=== PATIENT | female | born 1995 | race Caucasian/White ===

== ENCOUNTER 2017-11-02 14:56 | Observation (INO) | payer MEDICAID ==
[2017-11-02 15:54] VITALS: BP 122/74; PULSE 93
== END 2017-11-02 16:57 | disposition home or self-care (01) ==
LOC: UNDOADMOB 15:32 → OB 15:32 → UNDODISOB 16:57
PROVIDERS: ADMIT Family Medicine; ATTEND Family Medicine
DX: Z34.83 Encounter for supervision of other normal pregnancy, third trimester (principal)
CPT/HCPCS: 59025; G0378

== ENCOUNTER 2017-11-27 12:04 | Observation (INO) | payer MEDICAID ==
[2017-11-27 13:14] VITALS: O2SAT 98
[2017-11-27] MEDS ORDERED: Sodium Chloride 0.9% 1000 ML 1,000 ML IV STA (13:55)
[2017-11-27] MEDS ORDERED: Lactated Ringers 1,000 ML IV SCH (14:00)
--- NOTE | 2017-11-27 14:50 | XRAY ---
Indication: well-being. Ultrasound biophysical profile study was performed. Comparison: November 04, 2017. Again there is a single viable intrauterine with heart rate 139 BPM. Four-quadrant DAYNA is 16.7 cm, previously 15.8 cm. Largest amniotic pocket 5 cm. 2 points given for breathing, movements, tone, and qualitative amniotic fluid volume. Impression: Total biophysical profile score remains 8 out of 8.
[2017-11-27 15:29] LABS: Appearance HAZY (CLEAR); Bilirubin NEGATIVE (NEGATIVE); Blood NEGATIVE Ery/ul (0-5); Glucose 250 mg/dL (NEGATIVE); Ketones NEGATIVE (NEGATIVE); Leukocyte Esterase NEGATIVE (NEGATIVE); Nitrite NEGATIVE (NEGATIVE); Protein,Urine Dip NEGATIVE (Negative); Specific Gravity 1.025 (1.005-1.025); Urobilinogen NORMAL mg/dL (0-1)
[2017-11-27 15:43] LABS: BASOPHIL % 0.5 % (0.0-0.4); Basophil (Absolute #) 0.04 (0-0.4); Eosinophil % 3.1 % (0.00-5.0); Eosinophil (Absolute #) 0.26 (0-0.5); Granulocyte Absolute (ANC) 4.99 (1.4-6.9); Granulocytes % 59.6 % (36.0-66.0); Hematocrit 37.2 % (35-47); Hemoglobin 11.9 gm/dl (12.0-16.0); Lymphocyte (Absolute #) 2.25 (1.0-4.6); Lymphocytes % 26.9 % (24.0-44.0); Mean Cell Volume 85.9 fl (78-100); Mean Platelet Volume 12.7 fl (6-9.5); Monocyte (Absolute #) 0.83 (0.0-1.3); Monocytes % 9.9 % (0.0-12.0); Platelet Count 281 K/mm3 (150-450); Red Blood Count 4.33 M/mm3 (4.1-5.4); Red Cell Distribution Width 13.1 % (11.5-14.0); White Blood Count 8.4 K/mm3 (4.0-10.5)
[2017-11-27 15:53] LABS: ALBUMIN 3.7 g/dl (3.5-5.0); ALKALINE PHOSPHATASE 162 U/L (38-126); ANION GAP 15.1 MEQ/L (5-15); BLOOD UREA NITROGEN 9 mg/dl (7-17); CHLORIDE 106 mEq/L (98-107); Calcium 9.5 mg/dL (8.4-10.2); Carbon Dioxide 21 mmol/L (22-30); Creatinine 1 0.45 mg/dl (0.52-1.04); Glucose 79 mg/dL (74-106); Potassium 3.9 mmol/L (3.5-5.1); SGOT/AST 16 U/L (14-36); SGPT/ALT 13 U/L (0-35); SODIUM 138 mmol/L (137-145); Total Protein 7.3 mg/dl (6.3-8.2)
[2017-11-27] MEDS ORDERED: BRETHINE 1 MG/ML SQ ONE (16:07)
[2017-11-27 16:31] LABS: Mean Corpuscular Hemoglobin 27.4 pg (26-32)
[2017-11-27 16:34] LABS: Slide Review 1 YES
[2017-11-27 19:29] VITALS: BP 136/89; PULSE 92
== END 2017-11-27 18:55 | disposition home or self-care (01) ==
LOC: OB 12:07
PROVIDERS: ADMIT Family Medicine; ATTEND Family Medicine
DX: Z34.83 Encounter for supervision of other normal pregnancy, third trimester (principal)
CPT/HCPCS: 36415; 76819; 80053; 81002; 84550; 85025; 96372; G0378

== ENCOUNTER 2017-12-02 08:53 | Observation (INO) | payer OTHER ==
--- NOTE | 2017-12-02 10:51 | XRAY ---
Indication: well-being. Ultrasound biophysical profile study was performed. Comparison: November 27, 2017. Again there is a single viable intrauterine with heart rate 126 BPM. Four-quadrant DAYNA is 15.9 cm. Largest amniotic pocket 5.2 cm. 2 points given for breathing, movements, tone, and qualitative amniotic fluid volume. Impression: Total biophysical profile score remains 8 out of 8.
[2017-12-02 11:41] VITALS: BP 130/70; PULSE 70
== END 2017-12-02 11:20 | disposition home or self-care (01) ==
LOC: MED SURG 08:53
PROVIDERS: ADMIT Family Medicine; ATTEND Family Medicine
DX: Z34.83 Encounter for supervision of other normal pregnancy, third trimester (principal)
CPT/HCPCS: 59025; 76819; G0378

== ENCOUNTER 2017-12-05 08:28 | Observation (INO) | payer OTHER ==
[2017-12-06 17:14] VITALS: PULSE 65
[2017-12-06 17:24] LABS: 24 HR TOT. PROTEIN CALCULATION 0.06 GM/DAY (0.04-0.15)
[2017-12-06 18:56] VITALS: BP 140/84
--- NOTE | 2017-12-06 22:27 | XRAY ---
Indication: High risk . growth. Two-vessel cord. Two-dimensional OB ultrasound performed. Comparison: November 20, 2017. There is a single viable intrauterine again in cephalic presentation. Normal four-chamber heart with heart rate 117 bpm. Again there is again a 2 vessel umbilical cord. Remaining visualized stomach and bladder appear unremarkable. Placenta is again posterior without abruption/previa. BPD measures 9.00 cm corresponding to 36 weeks 3 day. HC measures 32.42 cm corresponding to 36 weeks 5 days. AC measures 32.37 cm corresponding to 36 weeks 2 days. FL measures 7.20 cm corresponding to 36 weeks 6 days. Estimated weight 6 lbs. 8 oz., +/-1 lb. 0 oz. Approximately 52 percentile. DAYNA is 10.1 cm. Impression: 1. Again single viable intrauterine with mean gestational age 36 weeks 4 days. Normal progression of . 2. Again incidental 2 vessel umbilical cord.
== END 2017-12-06 19:45 | disposition home or self-care (01) ==
LOC: EDSTATUS 12-06 15:24 → OB 12-06 15:25
PROVIDERS: ADMIT Family Medicine; ATTEND Family Medicine
DX: Z34.81 Encounter for supervision of other normal pregnancy, first trimester (principal)
CPT/HCPCS: 59025; 76805; 84156; G0378

== ENCOUNTER 2017-12-10 11:08 | Observation (INO) | payer OTHER ==
--- NOTE | 2017-12-10 12:08 | XRAY ---
Indication: Two-vessel cord. well being. Ultrasound biophysical profile study was performed. Comparison: December 02. Again there is a single viable intrauterine with heart rate documented. Four-quadrant DAYNA is 17.1 cm, previously 15.9 cm. Largest amniotic pocket is 4.7 cm. 2 points given for breathing, movements, tone, and qualitative amniotic fluid volume. Impression: Again total biophysical profile score is 8 out of 8.
[2017-12-10 12:22] VITALS: BP 129/72; PULSE 78
== END 2017-12-10 12:45 | disposition home or self-care (01) ==
LOC: OB 11:08
PROVIDERS: ADMIT Family Medicine; ATTEND Family Medicine
DX: Z34.83 Encounter for supervision of other normal pregnancy, third trimester (principal)
CPT/HCPCS: 59025; 76818; G0378

== ENCOUNTER 2017-12-13 09:35 | Observation (INO) | payer OTHER ==
[2017-12-13 10:01] VITALS: O2SAT 99
[2017-12-13] MEDS ORDERED: Celestone Soluspan 6MG/ML IM ONE (10:13)
[2017-12-13 12:34] VITALS: BP 139/86; PULSE 85
== END 2017-12-13 12:00 | disposition home or self-care (01) ==
LOC: OB 09:35
PROVIDERS: ADMIT Family Medicine; ATTEND Family Medicine
DX: Z34.83 Encounter for supervision of other normal pregnancy, third trimester (principal)
CPT/HCPCS: 59025; 96372; G0378; J0702

== ENCOUNTER 2017-12-16 00:10 | Inpatient (IN) | payer OTHER ==
[2017-12-16] MEDS ORDERED: Pepcid 20 MG VIAL IV SCH (00:15)
[2017-12-16] MEDS ORDERED: BICITRA 30 ML CUP PO SCH (00:15)
[2017-12-16] MEDS ORDERED: Reglan 10 MG/2 ML IV SCH (00:15)
[2017-12-16] MEDS ORDERED: CEFAZOLIN 2 GM-D5W BAG** 2 GM/50 ML ML IV SCH (00:30)
[2017-12-16 01:39] LABS: Amphetamine,Urine NEGATIVE (NEGATIVE); Barbiturate,Urine NEGATIVE (NEGATIVE); Benzodiazepine,Urine NEGATIVE (NEGATIVE); Cocaine,Urine NEGATIVE (NEGATIVE); Methadone,Urine NEGATIVE (NEGATIVE); Opiate,Urine NEGATIVE (NEGATIVE); PCP,Urine NEGATIVE (NEGATIVE); THC,Urine NEGATIVE (NEGATIVE)
[2017-12-16 02:49] LABS: Hemoglobin 10.7 gm/dl (12.0-16.0); Mean Cell Volume 85.4 fl (78-100); Mean Corpuscular Hgb Concent. 31.5 g/dl (32-36); Mean Platelet Volume 11.1 fl (6-9.5); Platelet Count 379 K/mm3 (150-450); Red Blood Count 3.98 M/mm3 (4.1-5.4); Red Cell Distribution Width 13.7 % (11.5-14.0); White Blood Count 6.4 K/mm3 (4.0-10.5)
[2017-12-16 02:50] LABS: Mean Corpuscular Hemoglobin 26.8 pg (26-32)
[2017-12-16 03:09] LABS: PTT 24.6 SECONDS (25.3-37.0)
[2017-12-16 03:29] LABS: ABO TYPING A; Antibody Screen NEGATIVE (NEGATIVE); RH TYPING POSITIVE
[2017-12-16 04:38] LABS: Appearance SLIGHTLY CLOUDY (CLEAR); Bacteria MODERATE /HPF (NEGATIVE); Bilirubin NEGATIVE (NEGATIVE); Blood NEGATIVE Ery/ul (0-5); Epithelial Cells MODERATE /HPF (FEW); Glucose NEGATIVE (NEGATIVE); Ketones MODERATE (NEGATIVE); Leukocyte Esterase 1+ (NEGATIVE); Mucus MANY /HPF (NEGATIVE); Nitrite NEGATIVE (NEGATIVE); Protein,Urine Dip TRACE (Negative); Urobilinogen NORMAL mg/dL (0-1)
[2017-12-16] MEDS: Lactated Ringers 1,000 ML IV SCH ×2 (06:30→07:19)
[2017-12-16] MEDS ORDERED: Lactated Ringers 1,000 ML IV ONE (07:16)
[2017-12-16] MEDS ORDERED: Mylicon 80MG PO PRN (08:43)
[2017-12-16] MEDS ORDERED: Restoril 15 MG PO PRN (08:43)
[2017-12-16] MEDS ORDERED: Dulcolax 10 MG SUPP PR PRN (08:43)
[2017-12-16] MEDS ORDERED: TUCKS TP PRN (08:43)
[2017-12-16] MEDS ORDERED: LANSINOH 40 GM TOP PRN (08:43)
[2017-12-16] MEDS ORDERED: Ambien 10 MG PO PRN (08:43)
[2017-12-16] MEDS: Dextrose 5%-Lr IV Solution 1000 ML 1,000 ML IV SCH ×2 (09:54→18:01)
[2017-12-16] MEDS: MOTRIN 400 MG PO PRN ×2 (10:30→18:31)
[2017-12-16] MEDS: PERCOCET TABLET 5/325MG PO PRN ×2 (11:02→22:29)
[2017-12-16] MEDS: Colace 100 MG PO SCH ×2 (11:16→22:29)
[2017-12-16] MEDS: FERREX 150 PO SCH (11:16)
[2017-12-16] MEDS ORDERED: Ventolin Hfa MDI IH PRN (12:52)
[2017-12-16] MEDS ORDERED: PROVENTIL COMMON CANISTER IH PRN (12:53)
[2017-12-16] MEDS: Wellbutrin XL 150 MG PO SCH (13:36)
--- NOTE | 2017-12-16 14:47 | OP ---
SURGERY DATE/TIME: 12/16/2017 0751 PREOPERATIVE DIAGNOSIS: Term intrauterine , previous section. POSTOPERATIVE DIAGNOSIS: Term intrauterine , previous section, delivered. PROCEDURE: Repeat lower uterine segment transverse incision section. SURGEON: Dr. Leiva. ANESTHESIA: Spinal. HISTORY: The patient is a 22 year old white female presenting now at 38 weeks gestation for repeat section. The patient has been becoming somewhat hypertensive and concern for developing preeclampsia. She was therefore moved up on the dates. She is now 38 and 0 weeks of gestation. The patient was appraised of the risks of the procedure including the risk of wound infection, bleeding requiring transfusion, possible injury to any intra-abdominal organs. The patient verbalized her understanding and desired to have the procedure performed. DESCRIPTION OF PROCEDURE: The patient was prepped and draped in the supine position. After adequate regional anesthesia was confirmed, a Pfannenstiel incision was made over the previous scar and carried down sharply through the fascia which was then divided in horizontal fashion. The rectus muscles were then bluntly and sharply dissected away from the overlying fascia. The muscles were then bluntly retracted. The peritoneum was then entered. A bladder flap was developed and the bladder was retracted inferiorly. The uterus was scored in a horizontal fashion and entered in the midline. The wound extended using bandage scissors. A white male was delivered through the abdominal wound. The cord was doubly clamped and divided between the clamps. The baby was handed off for further care. The placenta was manually extracted from the uterus. The uterus was delivered through the abdominal wound and wrapped in moist gauze. The wound edges were then reapproximated using 1-0 chromic suture in a running, interlocking fashion. The cul-de-sac area was then swabbed clear of blood and amniotic fluid and the uterus was replaced in the abdominal cavity. Paracolic gutters were also swabbed clear of blood of amniotic fluid. The peritoneum was then repaired using 3-0 chromic suture in running fashion. The fascia was repaired using 0 Vicryl suture in running fashion. The skin edges were reapproximated using 4-0 Vicryl sutures in subcuticular fashion and reinforced with Steri-Strips. The sponge, needle and instrument counts were reported as correct at the end of the procedure. Estimated blood loss was 500 cc. The patient was taken back to the recovery room in good condition.
[2017-12-16] MEDS ORDERED: Zofran 4 MG/2 ML VIAL IV ONE (15:56)
[2017-12-16] MEDS ORDERED: Ephedrine Sulfate 50 MG/ML IJ ONE (15:56)
[2017-12-16] MEDS ORDERED: Naropin 0.5% 30 ML VIAL IJ ONE (15:56)
[2017-12-16] MEDS ORDERED: Decadron 4 MG INJ IV ONE (15:56)
[2017-12-17] MEDS ORDERED: Lactated Ringers 1,000 ML IV ONE (02:26)
[2017-12-17] MEDS: PERCOCET TABLET 5/325MG PO PRN (05:48)
[2017-12-17 05:57] LABS: Granulocyte Absolute (ANC) 8.71 (1.4-6.9); Hematocrit 27.6 % (35-47); Hemoglobin 8.6 gm/dl (12.0-16.0); Mean Cell Volume 87.1 fl (78-100); Mean Corpuscular Hemoglobin 27.1 pg (26-32); Mean Corpuscular Hgb Concent. 31.2 g/dl (32-36); Mean Platelet Volume 12.3 fl (6-9.5); Platelet Count 370 K/mm3 (150-450); Red Blood Count 3.17 M/mm3 (4.1-5.4); Red Cell Distribution Width 13.8 % (11.5-14.0); White Blood Count 13.1 K/mm3 (4.0-10.5)
[2017-12-17 07:09] LABS: ANISOCYTOSIS 1+; Lymphocytes 21 % (24-44); Monocyte 4 % (0.0-12.0); Neutrophils 75 % (36.0-66.0); Platelet Estimate NORMAL (NORMAL); Poikilocytosis 1+; Polychromasia 1+; Total Cells Counted 100
[2017-12-17] MEDS ORDERED: NORCO 5/325 MG PO PRN (09:00)
[2017-12-17] MEDS: Wellbutrin XL 150 MG PO SCH (10:19)
[2017-12-17] MEDS: Colace 100 MG PO SCH ×2 (10:19→21:23)
[2017-12-17] MEDS: FERREX 150 PO SCH (10:19)
[2017-12-17] MEDS: Dextrose 5%-Lr IV Solution 1000 ML 1,000 ML IV SCH (13:45)
[2017-12-17] MEDS: TYLENOL EXTRA STRENGTH 500 MG PO PRN ×2 (16:03→22:55)
[2017-12-18 03:04] VITALS: O2SAT 98
--- NOTE | 2017-12-18 07:40 | PCM.DS ---
Discharge Summary Date of Admission: 12/16/17 00:10 Admitting Physician: NILTON MAE Consults: Consults on Case 12/16/17 00:05 Notify Physician OF ADMISSION 12/16/17 00:46 Notify Anesthesia Provider ROUTINE Primary Care Provider: NILTON MAE Allergies Allergies No Known Drug Allergies Allergy (Verified 12/13/17 10:15) Hospital Summary - Hospital Course Hospital Course: Mom was at 38 wks who came in for repeat c/s due to PIH. notable for 2 vessel cord. She had several ultrasounds with no anomalies noted. Her BP have been stable here. C/s without complication by Dr. Leiva. She has recovered well. No dizziness. Bleeding is light. - Vitals & Intake/Output Vital Signs: Vital Signs Temperature 98.3 F 12/18/17 02:57 Pulse Rate 84 12/18/17 02:57 Respiratory Rate 18 12/18/17 02:57 Blood Pressure 119/63 12/18/17 02:57 O2 Sat by Pulse Oximetry 98 12/18/17 02:57 Intake & Output: Intake & Output 12/15/17 12/16/17 12/17/17 12/18/17 11:59 11:59 11:59 11:59 Intake Total 870 3261 2860 Output Total 1800 Balance 870 1461 2860 Weight 91.172 kg - Lab Result Diagrams: 12/17/17 05:10 Micro Results-Entire Visit: Microbiology 12/16/17 07:59 Urine Culture - Preliminary Catherized NO GROWTH TO DATE 12/16/17 02:00 Urine Culture - Final Urine, Void NO GROWTH Discharge Exam General Appearance: no apparent distress, alert Neurologic Exam: oriented x 3, cooperative Skin Exam: normal color, warm, dry, No rash Respiratory Exam: normal breath sounds, lungs clear, No crackles/rales, No rhonchi, No wheezing Cardiovascular Exam: regular rate/rhythm, normal heart sounds, No murmur Back Exam: normal inspection, No rash Final Diagnosis/Problem List - Final Discharge Diagnosis/Problem (1) delivery delivered Current Visit: Yes Status: Acute Assessment & Plan: POD #2, doing great. (2) induced hypertension Current Visit: Yes Status: Acute Assessment & Plan: BP have been good here. (3) Anemia Current Visit: Yes Status: Acute Assessment & Plan: Home on Fe BID and recheck at PP visit - Discharge Disposition: Home, Self-Care Condition: Good Prescriptions: New Docusate Sodium 100 mg [Colace 100 MG] 100 mg PO BID PRN #60 capsule PRN Reason: Constipation Ferrous Sulfate 325 mg [Feosol 325 mg] 325 mg PO BID #60 tablet Ibuprofen 800 mg PO TID PRN #35 tablet PRN Reason: Pain Simethicone 80 mg [Mylicon 80MG] 80 mg PO QID PRN PRN #30 tab.chew PRN Reason: Gas Hydrocodone/Acetaminophen [[place] 5-325 Tablet] 1 each PO Q4-6HPRN PRN #30 tablet MDD 6 PRN Reason: Severe Pain Continue Bupropion HCl Xl 150 mg [Wellbutrin XL 150 MG] 150 mg PO DAILY Albuterol 8 gm Mdi Hfa [Ventolin Hfa MDI] 2 - 4 puffs IH Q4-6HPRN PRN PRN Reason: Shortness Of Breath Follow up with: NILTON MAE [Primary Care Provider] - 1 Week
[2017-12-18] MEDS: Wellbutrin XL 150 MG PO SCH (10:20)
[2017-12-18] MEDS: FERREX 150 PO SCH (10:20)
[2017-12-18] MEDS: TYLENOL EXTRA STRENGTH 500 MG PO PRN (10:20)
[2017-12-18] MEDS: Colace 100 MG PO SCH (10:24)
[2017-12-18 10:29] VITALS: BP 122/77; PULSE 78
== END 2017-12-18 11:05 | disposition home or self-care (01) | DRG 766 ==
LOC: OB 00:10
PROVIDERS: ADMIT Family Medicine; ATTEND Family Medicine
PROC: 10D00Z1 Extraction of Products of Conception, Low, Open Approach (ICD-10-PCS; principal; 2017-12-16)
DX: O13.4 Gestational [pregnancy-induced] hypertension without significant proteinuria, complicating childbirth (principal); Z37.0 Single live birth; Z3A.38 38 weeks gestation of pregnancy; D64.9 Anemia, unspecified
CPT/HCPCS: 36415; 59025; 64488; 76942; 80307; 81000; 85025; 85027; 85610; 85730; 86850; 86900; 86901; 87086; 94799; 96372; G0378; J0690; J0702; J1100; J2405; J2795; L0625; A9270-GY

== ENCOUNTER 2018-08-19 14:21 | Observation (INO) | payer OTHER ==
[2018-08-19 15:54] VITALS: BP 133/74; PULSE 74
== END 2018-08-19 17:18 | disposition home or self-care (01) ==
LOC: MED SURG 14:21
PROVIDERS: ADMIT Family Medicine; ATTEND Family Medicine
DX: Z34.82 Encounter for supervision of other normal pregnancy, second trimester (principal)
CPT/HCPCS: G0378

== ENCOUNTER 2018-11-06 13:15 | Observation (INO) | payer OTHER ==
--- NOTE | 2018-11-06 14:42 | XRAY ---
Indication: growth. 2-dimensional OB ultrasound performed. Comparison: August 22, 2018. Again there is a single viable intrauterine in cephalic presentation. Normal four-chamber heart with heart rate 139 BPM. anatomy including three-vessel cord and cord insertion previously documented. Visualized stomach, kidneys, and bladder are unremarkable. Anterior placenta without abruption/previa. BPD measures 7.81 cm corresponding to 31 weeks 2 days. HC measures 28.87 cm corresponding to 31 weeks 5 days. AC measures 27.23 cm corresponding to 31 weeks 2 days. FL measures 6.00 cm corresponding to 31 weeks 2 days. Impression: Again single viable intrauterine policy with mean gestational age 31 weeks 3 days. Normal progression of . No new/acute findings.
[2018-11-06] MEDS ORDERED: Sodium Chloride 0.9% 1000 ML 1,000 ML IV STA (14:51)
[2018-11-07 12:33] VITALS: BP 119/77; PULSE 75
[2018-11-07 14:11] LABS: 24 HR TOT. PROTEIN CALCULATION 0.336 GM/DAY (0.04-0.15)
== END 2018-11-07 13:42 | disposition home or self-care (01) ==
LOC: MED SURG 13:15
PROVIDERS: ADMIT Family Medicine; ATTEND Family Medicine
DX: O13.3 Gestational [pregnancy-induced] hypertension without significant proteinuria, third trimester (principal); Z3A.31 31 weeks gestation of pregnancy
CPT/HCPCS: 76805; 84156; G0378

== ENCOUNTER 2018-12-10 12:15 | Observation (INO) | payer OTHER ==
[2018-12-10] MEDS ORDERED: Celestone Soluspan 6MG/ML IM ONE (12:36)
[2018-12-10 13:14] LABS: Hematocrit 30.9 % (35-47); Hemoglobin 9.7 gm/dl (12.0-16.0); Mean Cell Volume 85.1 fl (78-100); Mean Corpuscular Hemoglobin 26.7 pg (26-32); Mean Corpuscular Hgb Concent. 31.4 g/dl (32-36); Mean Platelet Volume 10.8 fl (6-9.5); Platelet Count 360 K/mm3 (150-450); Red Blood Count 3.63 M/mm3 (4.1-5.4); Red Cell Distribution Width 14.2 % (11.5-14.0); White Blood Count 9.1 K/mm3 (4.0-10.5)
[2018-12-10 13:31] LABS: ALBUMIN 3.2 g/dL (3.5-5.0); ALKALINE PHOSPHATASE 160 U/L (38-126); ANION GAP 12.3 MEQ/L (5-15); BLOOD UREA NITROGEN 12 mg/dL (7-17); CHLORIDE 107 mmol/L (98-107); Calcium 8.3 mg/dL (8.4-10.2); Carbon Dioxide 21 mmol/L (22-30); Creatinine 1 0.48 mg/dL (0.52-1.04); Glucose 86 mg/dL (74-106); Potassium 3.7 mmol/L (3.5-5.1); SGOT/AST 14 U/L (14-36); SGPT/ALT 16 U/L (0-35); SODIUM 137 mmol/L (137-145); Total Protein 6.4 g/dL (6.3-8.2); Uric Acid 5.5 mg/dL (2.6-6.0)
[2018-12-10 13:47] LABS: BAND 1 % (0.0-2.0); Granulocyte Absolute (ANC) 7.46 (1.4-6.9); Lymphocytes 12 % (24-44); Monocyte 3 % (0.0-12.0); Neutrophils 81 % (36.0-66.0); Total Cells Counted 100
[2018-12-10 13:48] LABS: Basophil 1 % (0.0-1.0); Eosinophil 2 % (0.00-3.0); Platelet Estimate NORMAL (NORMAL)
[2018-12-10 14:33] VITALS: BP 126/84; PULSE 76
== END 2018-12-10 14:30 | disposition home or self-care (01) ==
LOC: OB 12:15
PROVIDERS: ADMIT Family Medicine; ATTEND Family Medicine
DX: Z34.83 Encounter for supervision of other normal pregnancy, third trimester (principal)
CPT/HCPCS: 36415; 59025; 80053; 84550; 85025; G0378; J0702

== ENCOUNTER 2018-12-13 13:42 | Observation (INO) | payer OTHER ==
[2018-12-13 14:06] VITALS: BP 133/86; PULSE 82
== END 2018-12-13 15:00 | disposition home or self-care (01) ==
LOC: OB 13:42
PROVIDERS: ADMIT Family Medicine; ATTEND Family Medicine
DX: Z34.83 Encounter for supervision of other normal pregnancy, third trimester (principal)
CPT/HCPCS: 59025; G0378

== ENCOUNTER 2018-12-15 00:05 | Inpatient (IN) | payer OTHER ==
[2018-12-15] MEDS ORDERED: Pepcid 20 MG VIAL IV SCH (00:15)
[2018-12-15] MEDS ORDERED: Reglan 10 MG/2 ML IV SCH (00:15)
[2018-12-15] MEDS ORDERED: BICITRA 30 ML CUP PO SCH (00:15)
[2018-12-15] MEDS ORDERED: CEFAZOLIN 2 GM-D5W BAG** 2 GM/50 ML ML IV SCH (00:30)
[2018-12-15 00:55] LABS: Hematocrit 32.3 % (35-47); Mean Cell Volume 85.4 fl (78-100); Mean Platelet Volume 11.6 fl (6-9.5); Platelet Count 400 K/mm3 (150-450); Red Blood Count 3.78 M/mm3 (4.1-5.4); Red Cell Distribution Width 14.2 % (11.5-14.0); White Blood Count 11.9 K/mm3 (4.0-10.5)
[2018-12-15 01:00] LABS: Mean Corpuscular Hemoglobin 26.4 pg (26-32)
[2018-12-15 01:10] LABS: INR 0.92 (0.8-3.0); PROTIME 10.7 SECONDS (9.95-12.35)
[2018-12-15 01:13] LABS: PTT 23.1 SECONDS (25.3-37.0)
[2018-12-15 01:42] LABS: Amphetamine,Urine NEGATIVE (NEGATIVE); Barbiturate,Urine NEGATIVE (NEGATIVE); Benzodiazepine,Urine NEGATIVE (NEGATIVE); Cocaine,Urine NEGATIVE (NEGATIVE); Methadone,Urine NEGATIVE (NEGATIVE); Opiate,Urine NEGATIVE (NEGATIVE); PCP,Urine NEGATIVE (NEGATIVE); THC,Urine NEGATIVE (NEGATIVE)
[2018-12-15 01:47] LABS: ABO TYPING A; Antibody Screen NEGATIVE (NEGATIVE); RH TYPING POSITIVE
[2018-12-15 01:48] LABS: Amourphous Crystal FEW /HPF (NEGATIVE); Appearance CLEAR (CLEAR); Bacteria RARE /HPF (NEGATIVE); Bilirubin NEGATIVE (NEGATIVE); Blood NEGATIVE Ery/ul (0-5); Epithelial Cells RARE /HPF (FEW); Glucose NEGATIVE (NEGATIVE); Ketones NEGATIVE (NEGATIVE); Leukocyte Esterase NEGATIVE (NEGATIVE); Mucus SLIGHT /HPF (NEGATIVE); Nitrite NEGATIVE (NEGATIVE); Protein,Urine Dip NEGATIVE (Negative); Specific Gravity 1.023 (1.005-1.025); Urobilinogen NEGATIVE mg/dL (0-1); WBC 0-2 /HPF (0-5)
[2018-12-15] MEDS ORDERED: CEFAZOLIN 2 GM-D5W BAG** 2 GM/50 ML ML IV ONE (07:49)
[2018-12-15] MEDS ORDERED: Lactated Ringers 2,000 ML IV ONE (07:49)
[2018-12-15] MEDS ORDERED: Reglan 10 MG/2 ML ONE (07:49)
[2018-12-15] MEDS ORDERED: Pepcid 20 MG VIAL IV ONE (07:49)
[2018-12-15] MEDS: Lactated Ringers 1,000 ML IV SCH ×2 (07:50→07:51)
[2018-12-15] MEDS ORDERED: HOLD NARCOTIC ANALGESICS AND SEDATIVES X24 HR MC PRN (08:41)
[2018-12-15 09:38] LABS: CHLAMYDIA URINE NEGATIVE (NEGATIVE); GC URINE NEGATIVE (NEGATIVE)
[2018-12-15 10:40] LABS: Appearance SLIGHTLY CLOUDY (CLEAR); Bacteria RARE /HPF (NEGATIVE); Bilirubin NEGATIVE (NEGATIVE); Blood NEGATIVE Ery/ul (0-5); Epithelial Cells RARE /HPF (FEW); Glucose NEGATIVE (NEGATIVE); Ketones NEGATIVE (NEGATIVE); Leukocyte Esterase NEGATIVE (NEGATIVE); Mucus SLIGHT /HPF (NEGATIVE); Nitrite NEGATIVE (NEGATIVE); Non-Squamous Epithelial Cells RARE /HPF (FEW); Protein,Urine Dip NEGATIVE (Negative); Specific Gravity 1.024 (1.005-1.025); Urobilinogen NEGATIVE mg/dL (0-1)
--- NOTE | 2018-12-15 13:16 | OP ---
SURGERY DATE/TIME: 12/15/2018 0816 PREOPERATIVE DIAGNOSIS: Term intrauterine , previous section, undesired fertility. POSTOPERATIVE DIAGNOSIS: Term intrauterine , previous section, undesired fertility, delivered. PROCEDURES: 1) Repeat lower uterine segment transverse incision section. 2) Bilateral tubal ligation by partial salpingectomy. SURGEON: Dr. Leiva. ANESTHESIA: Spinal. HISTORY: The patient is a 23 year old 3, para 2 now 3 white female presenting for elective repeat section at term. The patient was appraised of the risks of the procedure including the risk of wound infection, possible bleeding requiring transfusion, possible injury to any intra-abdominal organs and a failure rate of the tubal procedure 1:300. The patient verbalized her understanding and desired to have the procedure performed. DESCRIPTION OF PROCEDURE: The patient was prepped and draped in the supine position. After adequate regional anesthesia was confirmed, a Pfannenstiel incision was made over the previous scar and carried down sharply through the fascia which was divided in a horizontal fashion. The rectus muscles were then bluntly and sharply dissected away from the overlying fascia and then bluntly retracted laterally. The peritoneal cavity was entered. A bladder flap was developed and the bladder was retracted inferiorly. The uterus was scored in a horizontal fashion and entered in the midline. The wound is extended using bandage scissors. A white male infant was delivered through the abdominal wound. The cord was doubly clamped and divided between the clamps. The baby was handed off for further care. The placenta was then manually removed from the uterus. The uterus was then exteriorized and wrapped in moist gauze. The wound edges were grasped with Parekh clamps and the wound was reapproximated using 1-0 chromic suture in a running, interlocking fashion. The right fallopian tube was then identified and elevated with Qasim clamp. A hemostat was passed in avascular section of mesosalpinx and the tube was tied on either side of the elevated area. The interceding sections excised. The exposed edges of the tube were cauterized using Bovie. The left tube was similarly treated. The cul-de-sac area was then swabbed clear of blood and amniotic fluid and the uterus was replaced in the abdominal cavity. The peritoneum was then repaired using 3-0 chromic suture in a running fashion. The fascia was repaired using 0 Vicryl suture in a running fashion. The skin edges were reapproximated using omid. The sponge, needle and instrument count was reported as correct at the end of the procedure. Estimated blood loss was 250 cc.
[2018-12-15] MEDS ORDERED: BENADRYL 50 MG/ML IV PRN (14:58)
[2018-12-15] MEDS ORDERED: PERCOCET TABLET 5/325MG PO PRN (14:58)
[2018-12-15] MEDS ORDERED: DEMEROL 50 MG IV PRN (14:58)
[2018-12-15] MEDS ORDERED: Zofran 4 MG/2 ML VIAL IV PRN (14:58)
[2018-12-15] MEDS ORDERED: CLARITIN 10 MG PO PRN (14:58)
[2018-12-15] MEDS ORDERED: MORPHINE SULFATE 2 MG INJ IV PRN (14:58)
[2018-12-15] MEDS ORDERED: Nubain 10 MG/ML IV PRN (14:58)
[2018-12-15] MEDS ORDERED: Narcan 0.4 MG/ML IV PRN (14:58)
[2018-12-15] MEDS ORDERED: CORTISONE 1% CREAM TP PRN (15:00)
[2018-12-15] MEDS ORDERED: TYLENOL EXTRA STRENGTH 500 MG PO PRN (15:00)
[2018-12-15] MEDS ORDERED: NORCO 5/325 MG PO PRN (15:00)
[2018-12-15] MEDS ORDERED: Phenergan 25 MG INJ IM PRN (15:00)
[2018-12-15] MEDS ORDERED: Dextrose 5%-Lr IV Solution 1000 ML 1,000 ML IV SCH (15:00)
[2018-12-15] MEDS ORDERED: LANSINOH 40 GM TOP PRN (15:00)
[2018-12-15] MEDS ORDERED: Dulcolax 10 MG SUPP PR PRN (15:00)
[2018-12-15] MEDS ORDERED: Anucort-HC SUPPOSITORY PR PRN (15:00)
[2018-12-15] MEDS ORDERED: TUCKS TP PRN (15:00)
[2018-12-15] MEDS ORDERED: Mylicon 80MG PO PRN (15:00)
[2018-12-15] MEDS ORDERED: Ambien 10 MG PO PRN (15:00)
[2018-12-15] MEDS ORDERED: Dermoplast Spray TP PRN (15:00)
[2018-12-15] MEDS ORDERED: Xylocaine-Mpf 2% 5 Ml Vial IJ ONE (16:59)
[2018-12-15] MEDS ORDERED: Naropin 0.5% 30 ML VIAL IJ ONE (16:59)
[2018-12-15] MEDS ORDERED: Zofran 4 MG/2 ML VIAL IV ONE (16:59)
[2018-12-15] MEDS ORDERED: TORAdol 30 mg Injection IV ONE (16:59)
[2018-12-15] MEDS ORDERED: Decadron 4 MG INJ IV ONE (16:59)
[2018-12-15] MEDS: Colace 100 MG PO SCH (21:45)
[2018-12-15] MEDS: MOTRIN 400 MG PO PRN (23:33)
[2018-12-16 06:12] LABS: Hematocrit 30.8 % (35-47); Hemoglobin 9.3 gm/dl (12.0-16.0); Mean Cell Volume 85.3 fl (78-100); Mean Corpuscular Hgb Concent. 30.2 g/dl (32-36); Mean Platelet Volume 11.8 fl (6-9.5); Platelet Count 419 K/mm3 (150-450); Red Blood Count 3.61 M/mm3 (4.1-5.4); Red Cell Distribution Width 14.1 % (11.5-14.0); White Blood Count 19.9 K/mm3 (4.0-10.5)
[2018-12-16 06:15] LABS: Mean Corpuscular Hemoglobin 25.7 pg (26-32)
[2018-12-16] MEDS: MOTRIN 400 MG PO PRN ×2 (07:46→14:38)
[2018-12-16] MEDS ORDERED: Ventolin Hfa MDI IH PRN (07:55)
[2018-12-16] MEDS ORDERED: PROVENTIL COMMON CANISTER IH PRN (07:57)
[2018-12-16 08:11] LABS: Eosinophil 2 % (0.00-3.0); Lymphocytes 19 % (24-44); Monocyte 1 % (0.0-12.0); Neutrophils 78 % (36.0-66.0); Total Cells Counted 100
[2018-12-16 08:12] LABS: Platelet Estimate NORMAL (NORMAL)
[2018-12-16] MEDS: Nicoderm CQ 21 MG TOP SCH (10:14)
[2018-12-16] MEDS: Colace 100 MG PO SCH ×2 (10:15→21:57)
[2018-12-16] MEDS: FERREX 150 PO SCH (10:15)
[2018-12-16] MEDS: Bactroban OINTMENT TP SCH ×3 (10:15→21:57)
[2018-12-17] MEDS: MOTRIN 400 MG PO PRN (05:52)
[2018-12-17 06:02] VITALS: O2SAT 98
--- NOTE | 2018-12-17 07:56 | PCM.DS ---
Discharge Summary Date of Admission: 12/15/18 00:05 Admitting Physician: NILTON MAE Consults: Consults on Case 12/15/18 00:07 Notify Anesthesia Provider ROUTINE Notify Physician OF ADMISSION 12/15/18 14:58 Notify Anesthesia Provider PRN Primary Care Provider: NILTON MAE Allergies Allergies No Known Drug Allergies Allergy (Verified 12/10/18 12:40) Hospital Summary - Hospital Course Hospital Course: Pt came in as 23 yo at 37 weeks for repeat c/section. She developed pre- eclampsia around 32 weeks and was sent to Dr. Higgins for care. The office staff and pt later had some disagreement and she wanted to return to [facility] for delivery - I spoke with Dr. Higgins and he agreed that would be fine. She had a repeat 2d ago at 37 weeks gestation (for full details, see Dr. Leiva 's operative note). She also had a tubal ligation. She has been up and active since soon after her delivery. Tolerating po. Not sleeping well. Will discharge to home today. She has had most bp in normal range since delivery, but two recent bP in 140s systolic and 95 diastolic so will ask her to watch her BP daily at home and report COOPER or go to labor room/ER for any > 160 systolic or > 100 diastolic. - Vitals & Intake/Output Vital Signs: Vital Signs Temperature 97.7 F 12/16/18 20:00 Pulse Rate 73 12/17/18 02:00 Respiratory Rate 16 12/17/18 02:00 Blood Pressure 143/95 12/17/18 02:00 O2 Sat by Pulse Oximetry 98 12/17/18 02:00 Intake & Output: Intake & Output 12/14/18 12/15/18 12/16/18 12/17/18 11:59 11:59 11:59 11:59 Intake Total 3200 1200 Output Total 1200 Balance 2000 1200 Weight 86.183 kg - Lab Result Diagrams: 12/16/18 05:30 Lab Results-Last 24 Hrs: Lab Results-Last 24 Hours 12/16/18 Range/Units 05:30 Segmented Neutrophils 78 H (36.0-66.0) % Lymphocytes (Manual) 19 L (24-44) % Monocytes (Manual) 1 (0.0-12.0) % Eosinophils (Manual) 2 (0.00-3.0) % Platelet Estimate NORMAL (NORMAL) RBC Morphology NORMAL Micro Results-Entire Visit: Microbiology 12/15/18 08:28 Urine Culture - Final Catherized NO GROWTH - Procedures and Test Procedures and Tests throughout Hospitalization: Therapy Orders & Screens 12/15/18 00:50 Smoking Cessation Education ONCE Comment: Diagnosis: routine c/s Smoking Status: Current every day smoker How long have you smoked: 3 yrs Have you smoked in the past 12 months: Yes Approximately how many cigarettes per day: 10 Do you dip or chew tobacco: No 12/15/18 08:30 Standby Routine Comment: Diagnosis: routine c/s 12/16/18 11:13 Respiratory MDI UD Comment: Diagnosis: routine c/s 12/16/18 11:15 Respiratory Therapy Assessment DAILY Comment: Diagnosis: routine c/s Discharge Exam General Appearance: no apparent distress, alert Neurologic Exam: oriented x 3, cooperative, other (pat refl 2+ bilat. no clonus) Skin Exam: normal color, warm, dry, No rash Respiratory Exam: normal breath sounds, lungs clear, No crackles/rales, No rhonchi, No wheezing Cardiovascular Exam: regular rate/rhythm, normal heart sounds, No murmur Gastrointestinal/Abdomen Exam: soft, normal bowel sounds, other (fundus firm under umbilicus), No tenderness Extremity Exam: normal inspection, No pedal edema, No swelling Back Exam: normal inspection, No rash Final Diagnosis/Problem List - Final Discharge Diagnosis/Problem (1) delivery delivered Current Visit: No Status: Acute Assessment & Plan: POD #2, with BTL, pt doing great. home today. Code(s): O82 - ENCOUNTER FOR DELIVERY WITHOUT INDICATION (2) Pre-eclampsia Current Visit: Yes Status: Acute Assessment & Plan: continue to watch bp at home for the next 6 weeks. Code(s): O14.90 - UNSPECIFIED PRE-ECLAMPSIA, UNSPECIFIED TRIMESTER (3) Anemia Current Visit: No Status: Acute Assessment & Plan: mild. home on fe once daily. Code(s): D64.9 - ANEMIA, UNSPECIFIED - Discharge Disposition: Home, Self-Care Condition: Good Prescriptions: New Ferrous Sulfate 325 mg PO DAILY #30 tablet Ibuprofen 600 mg PO TID PRN #35 tablet PRN Reason: Pain Hydrocodone/APAP 5-325 Tab^^^ [[place] 5-325 Tablet^^^] 1 each PO Q6H PRN #20 tablet MDD 6 PRN Reason: Severe Pain Continue Albuterol 8 gm Mdi Hfa [Ventolin Hfa MDI] 2 - 4 puffs IH Q4-6HPRN PRN PRN Reason: Shortness Of Breath Nicotine [Nicotine Patch] 1 each TD PC Follow up with: NILTON MAE [Primary Care Provider] - 1 Week
[2018-12-17] MEDS ORDERED: Astramorph-Pf 5 MG/10 ML IJ ONE (08:13)
[2018-12-17] MEDS: Nicoderm CQ 21 MG TOP SCH (10:32)
[2018-12-17] MEDS: Colace 100 MG PO SCH (10:33)
[2018-12-17] MEDS: Bactroban OINTMENT TP SCH (10:33)
[2018-12-17] MEDS: FERREX 150 PO SCH (10:33)
[2018-12-17 12:07] VITALS: PULSE 74
[2018-12-17 12:39] VITALS: BP 125/72
== END 2018-12-17 12:40 | disposition home or self-care (01) | DRG 785 ==
LOC: OB 00:05
PROVIDERS: ADMIT Family Medicine; ATTEND Family Medicine
PROC: 10D00Z1 Extraction of Products of Conception, Low, Open Approach (ICD-10-PCS; principal; 2018-12-15)
PROC: 0UB70ZZ Excision of Bilateral Fallopian Tubes, Open Approach (ICD-10-PCS; 2018-12-15)
DX: O34.211 Maternal care for low transverse scar from previous cesarean delivery (principal); O14.94 Unspecified pre-eclampsia, complicating childbirth; Z3A.37 37 weeks gestation of pregnancy; Z37.0 Single live birth; Z30.2 Encounter for sterilization; D64.9 Anemia, unspecified
CPT/HCPCS: 36415; 59025; 64488; 76937; 76942; 80307; 81001; 85025; 85027; 85610; 85730; 86850; 86900; 86901; 87086; 87491; 87591; 88302; 88307; 94760; 94799; G0378; J0690; J1100; J1885; J2274; J2405; J2795; L0625; A9270-GY